=== PATIENT | male | born 2000 | race Hispanic/Latino ===

== ENCOUNTER 2020-03-18 09:00 | Emergency (ER) | payer OTHER ==
[~2020-03-18] VITALS: Ht 162.6 cm; Wt 60.0 kg
[2020-03-18] MEDS ORDERED: KETOROLAC 30 MG/ML 1ML VIAL IV ONE (09:30)
[2020-03-18] MEDS ORDERED: KETOROLAC 60MG 2ML VIAL IM ONE (09:30)
--- NOTE | 2020-03-18 10:12 | REP ---
CHEST, SINGLE VIEW: There is no evidence of acute infiltrate. No pleural effusion is seen. The heart is normal in size. The mediastinal silhouette is unremarkable. The visualized osseous structures are intact. IMPRESSION: No acute pulmonary disease. Electronically Signed by Jayant Whiting MD 03/18/2020 12:19 P
[2020-03-18] MEDS ORDERED: CYCLOBENZAPRINE 10MG TABLET PO ONE (10:30)
[2020-03-18] MEDS ORDERED: NORC1TAB7 PO (11:25)
[2020-03-18] MEDS ORDERED: KETO10TAB PO (11:25)
[2020-03-18] MEDS ORDERED: CYCL5TAB PO (11:25)
[2020-03-18] MEDS ORDERED: NORCO, ANEXSIA 5/325MG TABLET (HYDROcodone/ACETAMINOPHEN) PO ONE (11:30)
[2020-03-18 11:35] VITALS: BP 108/74
== END 2020-03-18 11:40 | disposition home or self-care (01) ==
LOC: M ED 09:00 → EDBD 09:00 → M ED 11:40
DX: M62.838 Other muscle spasm (principal)
CPT/HCPCS: 71045; 96372; 99284; J1885

== ENCOUNTER 2021-09-01 17:59 | Emergency (ER) | payer OTHER ==
[~2021-09-01] VITALS: Ht 152.4 cm; Wt 59.1 kg
[2021-09-01 17:59] VITALS: BP 118/65
[~2021-09-01 17:59] MED LIST: CYCL5TAB PO; KETO10TAB PO; NORC1TAB7 PO
--- OUTSIDE RECORDS SUMMARY | 2021-09-01 18:08 | CCD ---
Author Author [facility] Organization [facility] Address Unknown Phone Unavailable Care Team Providers Care Map Clerk Name Role Phone NO, PCP Unavailable Unavailable TURRIN, ALLAN Unavailable Unavailable TURRIN, ALLAN Unavailable Unavailable TURRIN, ALLAN Unavailable Unavailable TURRIN, ALLAN Unavailable Unavailable Re-disclosure Warning The records that you are about to access may contain information from federally-assisted alcohol or drug abuse programs. If such information is present, then the following federally mandated warning applies: This information has been disclosed to you from records protected by federal confidentiality rules (42 CFR part 2). The federal rules prohibit you from making any further disclosure of this information unless further disclosure is expressly permitted by the written consent of the person to whom it pertains or as otherwise permitted by 42 CFR part 2. A general authorization for the release of medical or other information is NOT sufficient for this purpose. The Federal rules restrict any use of the information to criminally investigate or prosecute any alcohol or drug abuse patient.The records that you are about to access may contain highly sensitive health information, the redisclosure of which is protected by Article 27-F of the [facility] Public Health law. If you continue you may have access to information: Regarding HIV / AIDS; Provided by facilities licensed or operated by the [facility] Office of Mental Health; or Provided by the [facility] Office for People With Developmental Disabilities. If such information is present, then the following [facility] mandated warning applies: This information has been disclosed to you from confidential records which are protected by state law. State law prohibits you from making any further disclosure of this information without the specific written consent of the person to whom it pertains, or as otherwise permitted by law. Any unauthorized further disclosure in violation of state law may result in a fine or mcc sentence or both. A general authorization for the release of medical or other information is NOT sufficient authorization for further disc losure. Encounters Encounter Providers Location Date Indications Data Source(s ) Emergency Attender: ALLAN Haydenant: PCP NO 08/30/2021 09:40:00 AM EST - 08/30/2021 03:00:00 PM [facility] Patient discharged. Immunizations Vaccine Date Status Description Data Source(s) COVID-19 VACCINE Moderna 03/09/2021 12:00:00 AM EDT completed [facility] Vaccine Series Complete: YESThis Data wa s Submitted to [facility] Via [employer]. COVID-19 VACCINE Moderna 02/09/2021 12:00:00 AM EDT completed [place] [place]uc[place] Vaccine Series Complete: NOThis Data was Submitted to [facility] Via [employer]. Medications No Information Insurance Providers Payer name Policy type / Coverage type Policy ID Covered alliance party ID Covered alliance party's relationship to mckeon Policy Mckeon Plan Information [facility] - O/P [id number] 18 [id number] [facility] ACTIVE DUTY [id number] SP [id number] [facility] O [id number] S [id number] Problems, Conditions, and Diagnoses No Information Surgeries/Procedures No Information Results ID Date Data Source [id number] 08/30/2021 10:11:00 PM [facility] [address] [place] [address] PHONE: [phone] FAX: [phone] Name ..............: ELLIS LOPEZ Acct Number ...........................: [id number] ROOM. ............: VT-09 Number ............................: [id number] Stay type.........: E/R Discharge Date...............:08/30/21 Admit Date .....: 08/30/21 Admit Phys .............................: LOUISA SALINAS Date of ..: 2000 Family Phys ...........................: NO PCP Phone..............: [phone] Age.................................:20 Film# ...............:[id number] Sex.................................:M Unsigned transcriptions are preliminary reports and do not represent a medical or legal document EKG [id number] COMPLETE:08/30/21 14:22 [id number] Please See Scanned Results. Name Value Range Interpretation Code Description Data Elizabeth rce(s) Supporting Document(s) ID Date Data Source [id number] 08/30/2021 01:13:00 PM EST Name Value Range Interpretation Code Description Data [facility] rce(s) Supporting Document(s) UA REFLEX TO UA CULTURE [facility] URINALYSIS SOURCE R [facility] COLOR yellow NORMAL: Yellow [facility] CLARITY clear NORMAL: Clear [facility] Specific gravity of Urine by Test strip 1.025 1.001 - 1.030 pH 6 5 - 9 [facility] Glucose [Mass/volume] in Urine by Test strip NORM NORMAL: Negat [facility] Bilirubin.total [Presence] in Urine by Test strip NEG NORMAL: Negative Ketones [Presence] in Urine by Test strip NEG NORMAL: Negative Protein [Mass/volume] in Urine by Test strip NEG NORMAL: Negat [facility] Nitrite [Presence] in Urine by Test strip NEG NORMAL: Negative BLOOD NEG NORMAL: Negative Leukocyte esterase [Presence] in Urine by Test strip NEG MATTIE L: Negative Urobilinogen [Mass/volume] in Urine by Test strip 1 less dereck n 1.0 mg/dL MICROSCOPIC Not Indicate [facility] ID Date Data Source [id number] 08/30/2021 01:36:00 PM EST Name Value Range Interpretation Code Description Data Elizabeth rce(s) Supporting Document(s) CBC W/AUTOMATED DIFF COMPLETE BLOOD COUNT Leukocytes [#/volume] in Blood by Automated count 6.4 10^3/uL 4.2 - 1 1.0 Erythrocytes [#/volume] in Blood by Automated count 4.89 10^6/uL 4. 50 - 6.30 Hemoglobin [Mass/volume] in Blood 15.2 g/dL 14.0 - 16.0 Hematocrit [Volume Fraction] of Blood by Automated count 43.6 % 4 1.0 - 51.0 Erythrocyte mean corpuscular volume [Entitic volume] by Auto mated count 89.2 fL 80.0 - 94.0 Erythrocyte mean corpuscular hemoglobin [Entitic mass] by Automated count 31.1 pg 27.0 - 34.0 Erythrocyte mean corpuscular hemoglobin concentration [Mass/volume] by Automated count 34.9 g/dL 31.0 - 36.0 Erythrocyte distribution width [Ratio] by Automated count 11.9 % 11.5 - 14.8 Platelets [#/volume] in Blood by Automated count 305 10^3/uL 150 - 45 0 Platelet mean volume [Entitic volume] in Blood by Automated count 9.2 fL 7.4 - 10.4 Neutrophils/100 leukocytes in Blood by Automated count 55.9 % 37. 0 - 80.0 Lymphocytes/100 leukocytes in Blood by Manual count 31.9 % 25.0 - 40.0 Monocytes/100 leukocytes in Blood by Automated count 6.3 % 3.0 - 8.0 Eosinophils/100 leukocytes in Blood by Automated count 4.4 % 0.0 - 7.0 Basophils/100 leukocytes in Blood by Automated count 0.9 % 0.0 - 2.0 %IG 0.6 % 0.0 - 0.0 H [facility] %NRBC 0.0 % 0.0 - 0.0 [facility] al Neutrophils [#/volume] in Blood by Automated count 3.55 10^3/uL 2.00 - 6.90 Lymphocytes [#/volume] in Blood by Automated count 2.03 10^3/uL 0.60 - 3.40 Monocytes [#/volume] in Blood by Automated count 0.40 10^3/uL 0.00 - 0.90 Eosinophils [#/volume] in Blood by Automated count 0.28 10^3/uL 0.00 - 0.70 Basophils [#/volume] in Blood by Automated count 0.06 10^3/uL 0.00 - 0.20 #IG 0.04 10^3/uL 0.00 - 0.10 [facility] #NRBC 0.00 10^3/uL 0.00 - 0.00 [facility] MANUAL DIFF SEE BELOW [facility] ital Segmented neutrophils/100 leukocytes in Blood by Manual count 56 % 37 - 80 %LYMPH 36 % 25 - 40 [facility] %MONO 6 % 3 - 8 [facility] %EOS 2 % 0 - 7 [facility] al RBC MORPH MORPH IS NORMAL ID Date Data Source [id number] 08/30/2021 01:39:00 PM EST Name Value Range Interpretation Code Description Data Elizabeth rce(s) Supporting Document(s) Thyrotropin [Units/volume] in Serum or Plasma by Detec tion limit <= 0.05 mIU/L 3.87 uIU/mL 0.47 - 5.01 ID Date Data Source [id number] 08/30/2021 01:31:00 PM EST Name Value Range Interpretation Code Description Data Elizabeth rce(s) Supporting Document(s) TROPONIN T <0.01 NG/ML 0.00 - 0.10 [facility] TROPONIN T0.1 ng/ml Recommended as the c linical threshold value Yulisaroponin T. ID Date Data Source [id number] 08/30/2021 01:31:00 PM EST Name Value Range Interpretation Code Description Data Elizabeth rce(s) Supporting Document(s) COMPREHENSIVE METABOLIC PANEL COMPREHENSIVE METABOLIC PANEL Sodium [Moles/volume] in Serum or Plasma 139 mEq/L 134 - 153 Potassium [Moles/volume] in Serum or Plasma 4.3 mEq/L 3.6 - 5.0 Chloride [Moles/volume] in Serum or Plasma 101 mEq/L 98 - 107 Carbon dioxide, total [Moles/volume] in Serum or Plasma 30 MEQ/L 22 - 30 Glucose [Mass/volume] in Serum or Plasma 91 MG/DL 70 - 99 BUN 11 MG/DL 7 - 21 [facility] Creatinine [Mass/volume] in Serum or Plasma 0.9 MG/DL 0.7 - 1.5 BUN/CREAT 12 8 - 27 [facility] al Protein [Mass/volume] in Serum or Plasma 7.3 G/DL 6.3 - 8.2 Albumin [Mass/volume] in Serum or Plasma 5.0 G/DL 3.9 - 5.0 Globulin [Mass/volume] in Serum by calculation 2.3 GM/DL 2.4 - 3.2 L A/G RATIO 2.2 0.8 - 2.0 [facility] Calcium [Mass/volume] in Serum or Plasma 9.8 MG/DL 8.4 - 10.2 Bilirubin.total [Mass/volume] in Serum or Plasma <0.7 MG/DL 0.2 - 1.3 Alkaline phosphatase [Enzymatic activity/volume] in Serum or Plasma 85 U/L 38 - 126 Aspartate aminotransferase [Enzymatic activity/volume] in Serum or Plasma 14 U/L 5 - 40 Alanine aminotransferase [Enzymatic activity/volume] in Seru m or Plasma 11 U/L 7 - 56 Anion gap 3 in Serum or Plasma 8.0 mmol/L 8.0 - 16.0 AGE 20 yrs [facility] NON-AA GFR >60 mL/min [facility] AFR AMER GFR >60 mL/min [facility] Male GFR In terprentation 20-49 yrs >60 mL/min Normal 50-59 yrs >56 mL/min Normal 60-69 yrs >49 mL/min Normal 70-79yrs >42 mL/min Normal 80 and above >35 mL/min Normal Female GFR Interpretation 20-39 yrs >60 mL/min Normal 40-49 yrs >58 mL/min Normal 50-59 yrs >51 mL/min Normal 60-69 yrs >45 mL/min Normal 70-79 yrs >39 mL/min Normal 80 and above >32 mL/min Normal ID Date Data Source [id number] 08/30/2021 01:29:00 PM [facility] Name Value Range Interpretation Code Description Data Elizabeth rce(s) Supporting Document(s) Lipase [Enzymatic activity/volume] in Serum or Plasma 39 U/L 13 - 60 ID Date Data Source [id number] 08/30/2021 01:21:00 PM [facility] Name Value Range Interpretation Code Description Data Elizabeth rce(s) Supporting Document(s) Fibrin D-dimer FEU [Mass/volume] in Platelet poor plasma 0.32 ug /mL 0.27 - 0.50 ID Date Data Source [id number] 08/30/2021 01:20:00 PM [facility] Name Value Range Interpretation Code Description Data Elizabeth rce(s) Supporting Document(s) Prothrombin time (PT) 13.3 SECONDS 11.0 - 15.5 [facility] INR in Platelet poor plasma by Coagulation assay 1.00 0.93 - 1. 23 aPTT in Blood by Coagulation assay 30.4 SECONDS 24.8 - 36.7 \BLDo\INR INTERPRETATION\BLDx\ Therapeutic range for Coumadin and related oral anticoagulants. - International Normalized Ratio (INR): 2.0 - 3.0 for Venous Thrombosis, Pulmonary Embolus, Tissue heart valves, Acute [place] Atrial Fibrillation, Valvular heart disease and recurrent Systemic Embolism. - International Normalized Ratio (INR): 2.5 - 3.5 for Mechanical Prosthetic valve. ID Date Data Source [id number] 08/26/2021 11:47:00 AM EDT [facility] Name Value Range Interpretation Code Description Data Elizabeth rce(s) Supporting Document(s) SARS coronavirus 2 RNA Not Detected [facility] This lab was ordered by [facility] and reported by [facility]. ID Date Data Source [id number] 08/24/2021 12:00:00 AM EDT [facility] Name Value Range Interpretation Code Description Data Elizabeth rce(s) Supporting Document(s) SARS-COV-2 Negative [facility] This lab was ordered by [employer] and re ported by [facility]. Procedure Social History No Information
--- OUTSIDE RECORDS SUMMARY | 2021-09-01 22:20 | CCD ---
Author Author [facility] Organization [facility] Address Unknown Phone Unavailable Care Team Providers Care Technical Support Specialist Name Role Phone NO, PCP Unavailable Unavailable [...] is protected by Article 27-F of the [facility] Public Health law. If you continue you may have access to information: Regarding HIV / AIDS; Provided by facilities licensed or operated by the [facility] Office of Mental Health; or Provided by the [facility] Office for People With Developmental Disabilities. If such information is present, then the following [facility] mandated warning applies: This information has been [...] law may result in a fine or residential sentence or both. A general authorization for the release of medical or other information is NOT sufficient authorization for further disc losure. Encounters Encounter Providers Location Date Indications Data Source(s ) Emergency Attender: ALLAN Haydenant: PCP NO 08/30/2021 09:40:00 AM EST - 08/30/2021 03:00:00 PM [facility] Patient discharged. Immunizations Vaccine Date Status Description Data Source(s) COVID-19 VACCINE Moderna 03/09/2021 12:00:00 AM EDT completed [facility] Vaccine Series Complete: YESThis Data wa s Submitted to [facility] [employer]. COVID-19 VACCINE Moderna 02/09/2021 12:00:00 AM EDT completed [employer] Vaccine Series Complete: NOThis Data was Submitted to [facility] [employer]. Medications No Information Insurance Providers Payer name Policy type / Coverage type Policy ID Covered green party ID Covered green party's relationship to mckeon Policy [employer] Plan Information [employer] - O/P [id number] 18 [id number] [facility] ACTIVE DUTY [id number] SP [id number] [facility] O [id number] S [id number] Problems, Conditions, and Diagnoses No Information Surgeries/Procedures No Information Results ID Date Data Source [id number] 08/30/2021 10:11:00 PM [facility] [address] [place] [address] PHONE: [phone] FAX: [phone] Name ..............: ELLIS LOPEZ Acct Number ...........................: [id number] ROOM. ............: VT-09 Number ............................: [id number] Stay type.........: E/R Discharge Date...............:08/30/21 Admit Date .....: 08/30/21 Admit Phys .............................: LOUISA SALINAS Date of ..: 2000 Family Phys ...........................: NO PCP Phone..............: [phone] Age.................................:20 Film# ...............:[id number] Sex.................................:M Unsigned transcriptions are preliminary reports and do not represent a medical or legal document EKG [id number] COMPLETE:08/30/21 14:22 11568 Please See Scanned Results. Name Value Range Interpretation Code Description Data Elizabeth rce(s) Supporting Document(s) ID Date Data Source [id number] 08/30/2021 01:13:00 PM EST [facility] Name Value Range Interpretation Code Description Data [facility] rce(s) Supporting Document(s) UA REFLEX TO UA CULTURE [facility] URINALYSIS SOURCE R [facility] COLOR yellow NORMAL: Yellow [facility] CLARITY clear NORMAL: Clear [facility] Specific gravity of Urine by Test strip 1.025 1.001 - 1.030 [facility] 6 5 - [facility] Glucose [Mass/volume] in Urine by Test strip NORM NORMAL: Negat [facility] Bilirubin.total [Presence] in Urine by Test strip NEG NORMAL: Negative [facility] Ketones [Presence] in Urine by Test strip NEG NORMAL: Negative [facility] Protein [Mass/volume] in Urine by Test strip NEG NORMAL: Negat [facility] Nitrite [Presence] in Urine by Test strip NEG NORMAL: Negative [facility] BLOOD NEG NORMAL: Negative [facility] Leukocyte esterase [Presence] in Urine by Test strip NEG MATTIE L: Negative [facility] Urobilinogen [Mass/volume] in Urine by Test strip 1 less dereck n 1.0 mg/dL [facility] MICROSCOPIC Not Indicate [facility] ID Date Data Source [id number] 08/30/2021 01:36:00 PM EST [facility] Name Value Range Interpretation Code Description Data Elizabeth rce(s) Supporting Document(s) CBC W/AUTOMATED DIFF [facility] COMPLETE BLOOD COUNT Leukocytes [#/volume] in Blood by Automated count 6.4 10^3/uL 4.2 - 1 1.0 [facility] Erythrocytes [#/volume] in Blood by Automated count 4.89 10^6/uL 4. 50 - 6.30 [facility] Hemoglobin [Mass/volume] in Blood 15.2 g/dL 14.0 - 16.0 [facility] Hematocrit [Volume Fraction] of Blood by Automated count 43.6 % 4 1.0 - 51.0 [facility] Erythrocyte mean corpuscular volume [Entitic volume] by Auto mated count 89.2 fL 80.0 - 94.0 [facility] Erythrocyte mean corpuscular hemoglobin [Entitic mass] by Automated count 31.1 pg 27.0 - 34.0 [facility] Erythrocyte mean corpuscular hemoglobin concentration [Mass/volume] by Automated count 34.9 g/dL 31.0 - 36.0 [facility] Erythrocyte distribution width [Ratio] by Automated count 11.9 % 11.5 - 14.8 [facility] Platelets [#/volume] in Blood by Automated count 305 10^3/uL 150 - 45 0 [facility] Platelet mean volume [Entitic volume] in Blood by Automated count 9.2 fL 7.4 - 10.4 [facility] Neutrophils/100 leukocytes in Blood by Automated count 55.9 % 37. 0 - 80.0 [facility] Lymphocytes/100 leukocytes in Blood by Manual count 31.9 % 25.0 - 40.0 [facility] Monocytes/100 leukocytes in Blood by Automated count 6.3 % 3.0 - 8.0 [facility] Eosinophils/100 leukocytes in Blood by Automated count 4.4 % 0.0 - 7.0 [facility] Basophils/100 leukocytes in Blood by Automated count 0.9 % 0.0 - 2.0 [facility] %IG 0.6 % 0.0 - 0.0 H [facility] %NRBC 0.0 % 0.0 - 0.0 [facility] Neutrophils [#/volume] in Blood by Automated count 3.55 10^3/uL 2.00 - 6.90 [facility] Lymphocytes [#/volume] in Blood by Automated count 2.03 10^3/uL 0.60 - 3.40 [facility] Monocytes [#/volume] in Blood by Automated count 0.40 10^3/uL 0.00 - 0.90 [facility] Eosinophils [#/volume] in Blood by Automated count 0.28 10^3/uL 0.00 - 0.70 [facility] Basophils [#/volume] in Blood by Automated count 0.06 10^3/uL 0.00 - 0.20 [facility] #IG 0.04 10^3/uL 0.00 - 0.10 [facility] #NRBC 0.00 10^3/uL 0.00 - 0.00 [facility] MANUAL DIFF SEE BELOW [facility] Segmented neutrophils/100 leukocytes in Blood by Manual count 56 % 37 - 80 [facility] %LYMPH 36 % 25 - 40 [facility] %MONO 6 % 3 - 8 [facility] %EOS 2 % 0 - 7 [facility] RBC MORPH MORPH IS NORMAL [facility] ID Date Data Source [id number] 08/30/2021 01:39:00 PM EST [facility] Name Value Range Interpretation Code Description Data Elizabeth rce(s) Supporting Document(s) Thyrotropin [Units/volume] in Serum or Plasma by Detec tion limit <= 0.05 mIU/L 3.87 uIU/mL 0.47 - 5.01 [facility] ID Date Data Source [id number] 08/30/2021 01:31:00 PM EST [facility] Name Value Range Interpretation Code Description Data Elizabeth rce(s) Supporting Document(s) TROPONIN T <0.01 NG/ML 0.00 - 0.10 [facility] ospital TROPONIN T0.1 ng/ml Recommended as the c linical threshold value Yulisaroponin T. ID Date Data Source [id number] 08/30/2021 01:31:00 PM EST [facility] Name Value Range Interpretation Code Description Data Elizabeth rce(s) Supporting Document(s) COMPREHENSIVE METABOLIC PANEL [facility] COMPREHENSIVE METABOLIC PANEL Sodium [Moles/volume] in Serum or Plasma 139 mEq/L 134 - 153 [facility] Potassium [Moles/volume] in Serum or Plasma 4.3 mEq/L 3.6 - 5.0 [facility] Chloride [Moles/volume] in Serum or Plasma 101 mEq/L 98 - 107 [facility] Carbon dioxide, total [Moles/volume] in Serum or Plasma 30 MEQ/L 22 - 30 [facility] Glucose [Mass/volume] in Serum or Plasma 91 MG/DL 70 - 99 [facility] BUN 11 MG/DL 7 - 21 [facility] Creatinine [Mass/volume] in Serum or Plasma 0.9 MG/DL 0.7 - 1.5 [facility] BUN/CREAT 12 8 - 27 [facility] Protein [Mass/volume] in Serum or Plasma 7.3 G/DL 6.3 - 8.2 [facility] Albumin [Mass/volume] in Serum or Plasma 5.0 G/DL 3.9 - 5.0 [facility] Globulin [Mass/volume] in Serum by calculation 2.3 GM/DL 2.4 - 3.2 L [facility] A/G RATIO 2.2 0.8 - 2.0 [facility] Calcium [Mass/volume] in Serum or Plasma 9.8 MG/DL 8.4 - 10.2 [facility] Bilirubin.total [Mass/volume] in Serum or Plasma <0.7 MG/DL 0.2 - 1.3 [facility] Alkaline phosphatase [Enzymatic activity/volume] in Serum or Plasma 85 U/L 38 - 126 [facility] Aspartate aminotransferase [Enzymatic activity/volume] in Serum or Plasma 14 U/L 5 - 40 [facility] Alanine aminotransferase [Enzymatic activity/volume] in Seru m or Plasma 11 U/L 7 - 56 [facility] Anion gap 3 in Serum or Plasma 8.0 mmol/L 8.0 - 16.0 [facility] AGE 20 yrs [facility] NON-AA GFR >60 mL/min [facility] ital AFR AMER GFR >60 mL/min [facility] Male GFR In terprentation 20-49 [...] >32 mL/min Normal ID Date Data Source [id number] 08/30/2021 01:29:00 PM [facility] Name Value Range Interpretation Code Description Data Elizabeth rce(s) Supporting Document(s) Lipase [Enzymatic activity/volume] in Serum or Plasma 39 U/L 13 - 60 [facility] ID Date Data Source [id number] 08/30/2021 01:21:00 PM [facility] Name Value Range Interpretation Code Description Data Elizabeth rce(s) Supporting Document(s) Fibrin D-dimer FEU [Mass/volume] in Platelet poor plasma 0.32 ug /mL 0.27 - 0.50 [facility] ID Date Data Source [id number] 08/30/2021 01:20:00 PM [facility] Name Value Range Interpretation Code Description Data Elizabeth rce(s) Supporting Document(s) Prothrombin time (PT) 13.3 SECONDS 11.0 - 15.5 Health system INR in Platelet poor plasma by Coagulation assay 1.00 0.93 - 1. 23 [facility] aPTT in Blood by Coagulation assay 30.4 SECONDS 24.8 - 36.7 [facility] \BLDo\INR INTERPRETATION\BLDx\ Therapeutic range for Coumadin and related oral anticoagulants. - International Normalized Ratio (INR): 2.0 - 3.0 for Venous Thrombosis, Pulmonary Embolus, Tissue heart valves, Acute [place] Atrial Fibrillation, Valvular heart disease and recurrent Systemic Embolism. - International Normalized Ratio (INR): 2.5 - 3.5 for Mechanical Prosthetic valve. ID Date Data Source [id number] 08/26/2021 11:47:00 AM EDT [facility] Name Value Range Interpretation Code Description Data Elizabeth rce(s) Supporting Document(s) SARS coronavirus 2 RNA Not Detected [facility] This lab was ordered by [facility] and reported by [facility]. ID Date Data Source [id number] 08/24/2021 12:00:00 AM EDT [facility] Name Value Range Interpretation Code Description Data Elizabeth rce(s) Supporting Document(s) SARS-COV-2 Negative [facility] This lab was ordered by [facility] and re ported by [facility]. Procedure Social History No Information
== END 2021-09-01 22:13 | disposition left against medical advice (07) ==
LOC: M ED 17:59
DX: Z53.29 Procedure and treatment not carried out because of patient's decision for other reasons (principal)

== ENCOUNTER 2021-09-15 10:59 | Emergency (ER) | payer OTHER ==
[~2021-09-15] VITALS: Ht 162.6 cm; Wt 59.8 kg
--- OUTSIDE RECORDS SUMMARY | 2021-09-15 11:04 | CCD ---
Author Author [facility] Address Unknown Phone Unavailable Care Team Providers Care Tractor Distributor Name Role Phone NO, PCP Unavailable Unavailable [...] is protected by Article 27-F of the [facility] Public Health law. If you continue you may have access to information: Regarding HIV / AIDS; Provided by facilities licensed or operated by the [facility] Office of Mental Health; or Provided by the [facility] Office for People With Developmental Disabilities. If such information is present, then the following [facility] mandated warning applies: This information has [...] law may result in a fine or assisted sentence or both. A general authorization for the release of medical or other information is NOT sufficient authorization for further disc losure. Encounters Encounter Providers Location Date Indications Data Source(s ) Emergency Attender: ALLAN Liraltant: PCP NO 08/30/2021 09:40:00 AM EST - 08/30/2021 03:00:00 PM [facility] Patient discharged. Immunizations Vaccine Date Status Description Data Source(s) COVID-19 VACCINE Moderna 03/09/2021 12:00:00 AM EDT completed [facility] Vaccine Series Complete: YESThis Data wa s Submitted to [facility] Via [employer]. COVID-19 VACCINE Moderna 02/09/2021 12:00:00 AM EDT completed [facility] Vaccine Series Complete: NOThis Data was Submitted to [facility] Via [employer]. Medications No Information Insurance Providers Payer name Policy type / Coverage type Policy ID Covered democrat ID Covered democrat's relationship to mckeon Policy Mckeon Plan Information [facility] [id number] SP [id number] [facility] - O/P [id number] 18 [id number] [facility] O [id number] S [id number] Problems, Conditions, and Diagnoses Code Display Name Description Problem Type Effective Dates Data Source(s) Z5320 Procedure and treatment not carried out because of patient's decision for unspecified reasons Procedure and treatment not carried out because of patient's decision for unspecified reasons Diagnosis 08/30/2021 09:40:00 AM [facility] R001 Bradycardia, unspecified Bradycardia, unspecified Diag nosis 08/30/2021 09:40:00 AM [facility] R42 Dizziness and giddiness Dizziness and giddiness Diagno sis 08/30/2021 09:40:00 AM [facility] Surgeries/Procedures No Information Results ID Date Data Source [id number] 08/30/2021 09:40:00 AM [facility] 1 OrderSheet [facility] Emergency Department [address] [place] [address] Phone #: ext- [phone] 08/30/2021 09:33 Patient: JOHN CORRAL Sex: M : 2000 Age: 20yWEIGHT:58.9 kg (S) HEIGHT:64 inches (S) BMI:22.3ALLERGIES: No Known Drug AllergyCHIEF COMPLAINT: dizzinessDIAGNOSIS: DizzinessLAB ORDERSOrder Description Priority Entered Acknowledged InitialedCBC w Diff STAT 12:49 08/30/2021 13:06 Mik Lipscomb RN P.A.-C;CMP STAT 12:49 08/30/2021 13:06 Mik Lipscomb RN P.A.-C;Lipase STAT 12:49 08/30/2021 13:06 Mik Lipscomb RN P.A.-C;PT/PTT STAT 12:49 08/30/2021 13:06 Mik Lipscomb RN P.A.-C;Troponin-T STAT 12:49 08/30/2021 13:06 Mik Lipscomb RN P.A.-C;TSH STAT 12:49 08/30/2021 13:06 Mik Lipscomb RN P.A.-C;D-Dimer STAT 12:49 08/30/2021 13:06 Mik Lipscomb RN P.A.-C;UA Reflex to UA STAT 12:49 08/30/2021 13:36 Ruel,Culture Mik Lin RN P.A.- C;DIAGNOSTIC STUDY ORDERSOrder Description Priority Entered Acknowledged InitialedCT Head W/O Cont STAT 13:56 08/30/2021 Cancelled: Patient Left 15:10 Alfred,(Oxygen?(No)) Mik Nair R.N. P.A.-C; Reason for Study: dizziness 2 OrderSheet [facility] Emergency Department [address] [place] [address] Phone #: ext- [phone] 08/30/2021 09:33 Patient: JOHN CORRAL Sex: M : 2000 Age: 20yChest 2 View STAT 13:56 08/30/2021 14:29 Ruel,(Oxygen?(No)) Mik Lin RN P.A.-C; Reason for Study: dizziness; neg d- dimerMEDICATION/IV/DRIP/FLUID ORDERSOrder Description Priority Entered Acknowledged InitialedIV NS : Bolus 500 12:49 08/30/2021 13:46 Ruel,mL, then 100 mL/hr Mik Lin RN P.A.-C;Tylenol 1 g PO X1 13:56 08/30/2021 Cancelled: Patient Left 15:10 Simon,dose: 1000 mg Mik Nair R.N.(NOW x1) P.A.- C;Zofran IVP 4 mg 13:56 08/30/2021 Cancelled: Patient Left 15:10 Alfred, Mik Nair R.N. P.A.-C;GENERAL ORDERSOrder Description Priority Entered Acknowledged InitialedEKG 12:26 08/30/2021 12:26 L Reul Keating Lisa RN; Delia MERCADO Per protocol; Mik Grafood Pressure 12:49 08/30/2021 13:05 Ruel,Monitor Mik Lin RN P.A.-C;Political Geographer 12:49 08/30/2021 13:05 Ruel,(continuous) Mik Lin RN P.A.-C;NPO 12:49 08/30/2021 13:05 Mik Lipscomb RN P.A.-C;Obtain Old EKG 12:49 08/30/2021 13:05 Mik Lipscomb RN P.A.-C;Obtain Old Records 12:49 08/30/2021 13:06 Mik Lipscomb RN P.A.-C;Saline Lock 12:49 08/30/2021 13:46 Mik Lipscomb RN;Vitals 12:49 08/30/2021 13:00 Ruel, 3 OrderSheet [facility] Emergency Department [address] [place] [address] Phone #: [phone]- [phone] 08/30/2021 09:33 Patient: JOHN CORRAL Sex: M : 2000 Age: 20y Mik Lin RN, P.A.-C;[Electronically signed by Joanie Simon R.N. (15:13 08/30/2021)][Electronically signed by Mik Hanks P.A.-C (10:58 08/31/2021)][Electronically locked by Joanie Simon R.N. (15:13 08/30/2021)] Name Value Range Interpretation Code Description Data Elizabeth rce(s) Supporting Document(s) ID Date Data Source [id number] 08/30/2021 09:40:00 AM EST [facility] 1 Medication Reconciliation Report [facility] Emergency Department [address] [place] [address] Phone #: ext- [phone] 08/30/2021 09:33 Patient: JOHN CORRAL Sex: M : 2000 Age: 20yWeight: 58.9 kgHeight/Length: 64 in.BMI: 22.3ALLERGIES: No Known Drug AllergyThe patient's Home Medications are listed below:NONE.The source(s) of the original Home Medication information:Not obtained.The following Medications were given to the patient in the Emergency Department:IV NS IV Fluids bolus 500 mL over 30 minute(s), then 100 mL/hr, administered: 13:46 08/30/2021The following Medications were prescribed to the patient:None. Name Value Range Interpretation Code Description Data Elizabeth rce(s) Supporting Document(s) ID Date Data Source [id number] 08/30/2021 09:40:00 AM [place] [address] Medication Administration Record [facility] Emergency Department [address] [place] [address] Phone #: her- [phone] 08/30/2021 09:33 Patient: JOHN CORRAL Sex: M : 2000 Age: 20yWeight: 58.9 kgHeight/Length: 64 inBMI: 22.3ALLERGIES: No Known Drug Allergy Date/Time Medication Administered Medication OrderedStart IV NS IV NS : Bolus 500 mL, then [address]:[id number] 08/30/2021 Dose: IV Fluids mL/hrDelia Lipscomb RN Rate: 100 mL/hr over 5 hour(s)---- Bolus: 500 mL over 30 minute(s)Stop Dispensed: 1000 mL bag15:13 08/30/2021 Site: #1 left Joanie Prieto R.N. Name Value Range Interpretation Code Description Data Elizabeth rce(s) Supporting Document(s) ID Date Data Source [id number] 08/30/2021 09:40:00 AM [place] [address] General Instructions [facility] Emergency Department [address] [place] [address] Phone #: ext- [phone] 08/30/2021 09:33 Patient: JOHN CORRAL Sex: M : 2000 Age: 20yDizzinessINSTRUCTIONSDrink plenty of fluids.(Recommend to utilize OTC Motrin and Tylenol to control inflammation and pain management.Recommend to follow the instructions on the bottle and not to exceed.).Warnings: Further evaluation is necessary.GENERAL WARNINGS: Return or contact your physician immediately if your condition worsens orchanges unexpectedly, if not improving as expected, or if other problems arise.Follow-up:Return to the emergency department as needed. Follow up with your healthcare provider in about twodays if not better. Call for an appointment.Understanding of the discharge instructions verbalized by patient.AMA warnings: Oriented to person, place, and time. Gives appropriate answers and rational explanationof refusal of care. Speaks coherently. No signs of psychosis, auditory hallucinations, delusional thinking,suicidal ideations or slurred speech. No tangential thinking, visual hallucinations or homicidal ideations.Abstract thinking intact.Clinical Impression: the patient has the capacity to make decisions regarding the medical care offered.Relevant issues reviewed and discussed with the patient. The suspected diagnosis, based upon theinitiated medical screening exam, is Dizziness and has been discussed with the patient. Acknowledgesunderstanding of the reasons for recommendations regarding medical treatment and further observation.The recommended medical care being refused is Wait for results and imaging and has been discussedwith the patient. The risks of refusing recommended care that were disclosed are . Risks ofrefusing recommended care- Significnat negative outcome. Discharge instructions were provided to thepatient.REFUSAL OF CARE STATEMENT (patient to review and sign in discharge instructions):I have read this paragraph. I understand that a doctor at this hospital wants to give me certain medicalcare. The doctor explained that care to me, and I understand what that care is. The doctor also explainedto me what could happen to me if I leave here without having that care, and I understand what he said. Iknow that I am welcome to return to this hospital at any time to receive the recommended care or any othercare that I may need at any time, regardless of my ability to pay for such care. 2 General Instructions [facility] Emergency Department [address] [place] [address] Phone #: ext- [phone] 08/30/2021 09:33 Patient: JOHN CORRAL Sex: M : 2000 Age: 20y ADDITIONAL INFORMATIONDizziness (Uncertain Cause)Dizziness is a common symptom. It may be described as lightheadedness, spinning, or feeling likeyou are going to faint. Dizziness can have many causes.Tell the healthcare provider about: All medicines you take, including prescription, [id number], herbs, and supplements Any other symptoms you have Any health problems you are being treated for Any past major health problems you've had, such as a heart attack, balance issues, hearing problems, or blood pressure problems Anything that causes the dizziness to get worse or betterToday's exam did not show an exact cause for your dizziness . Other tests may be needed. Follow upwith your healthcare provider.Home care Dizziness that occurs with sudden standing may be a sign of mild dehydration. Drink extra fluids for the next few days. If you recently started a new medicine, stopped a medicine, or had the dose of a current medicine changed, talk with the prescribing healthcare provider. Your medicine plan may need adjustment. If dizziness lasts more than a few seconds, sit or lie down until it passes. This may help prevent injury in case you pass out. Get up slowly when you feel better. Don't drive or use power tools or dangerous equipment until you have had no dizziness for at least 48 hours.Follow-up careFollow up with your healthcare provider for further evaluation in the next 7 days, or as advised.When to get medical adviceCall your healthcare provider for any of the following: Worsening of symptoms or new symptoms 3 General Instructions [facility] Emergency Department [address] [place] [address] Phone #: ext- [phone] 08/30/2021 09:33 Patient: JOHN CORRAL Sex: M : 2000 Age: 20y Repeated vomiting Headache Vision or hearing changesCall 911Call 911, or get medical care right away if any of these occur: Chest, arm, neck, back, or jaw pain Weakness of an arm or leg or one side of the face Blood in vomit or stool (black or red color) Shortness of breath Feeling that your heart is fluttering or beating fast or hard (palpitations) Passing out or seizure Trouble walking or speaking [employer]. [address] [place] [address]. All rights reserved. This information is not intended as asubstitute for professional medical care. Always follow your healthcare professional's instructions. You have been given the following additional information: Dizziness, Uncertain Cause(Electronically signed by Mik Hanks P.A.-C 08/31/2021 10:58) Name Value Range Interpretation Code Description Data Elizabeth rce(s) Supporting Document(s) ID Date Data Source [id number] 08/30/2021 09:40:00 AM EST [facility] 1 Clinical Report - Nurses [facility] Emergency Department [address] [place] [address] Phone #: mdn- [phone] 08/30/2021 09:33 Patient: JOHN CORRAL Sex: M : 2000 Age: 20yTRIAGEArrived by private vehicle. Historian: patient.Acuity: LEVEL 3.Chief Complaint: HEADACHE, DIZZINESS, SORE THROAT, CHEST PAIN, COUGH and DIARRHEA.Alert. No acute distress.Onset. (2 weeks ago). ( Pt reports having a CABALLERO, sore throat, diarrhea, and cough x 2 weeks. [facility] a covid test done which came back negative. [facility] which was also negative. This morning while running he began havingchest pain and dizziness (chest pain not present now but still feels dizzy).). 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 Seen within the last 30 days at another facility in the ED and a clinic; seen for similarsymptoms; labs done.SEPSIS SCREEN: SIRS SCREEN NEGATIVE. SEPSIS SCREEN NEGATIVE. No suspected or confirmedsigns of infection present.DANIELLE COMA SCORE: 15- eyes open- spontaneous (4); best verbal response- oriented (5); bestmotor response- obeys commands (6). --11:04 08/30/21 Joanie Simon R.N.10:56 08/30/21. BP: 103/54. HR: 64. RR: 20. O2 saturation: 98%. Temp: 97.7 F. Pain level now 05/01.--11:04 08/30/21 Joanie Simon R.N.Weight: 58.9 kg stated. Height/Length: 64 inches Per Patient. BMI: 22.3. --10:59 08/30/21 Joanie Simon R.N.MedicationsNone. --11:02 08/30/21 Joanie Simon R.N.AllergiesNo Known Drug Allergy. --11:02 08/30/21 Joanie Simon R.N.PROBLEMS:no known problems.ADDITIONAL SURGERIES:no known surgeries. 2 Clinical Report - Nurses [facility] E mergency Department [address] [place] [address] Phone #: ext- [phone] 08/30/2021 09:33 Patient: JOHN CORRAL Sex: M : 2000 Age: 20y History PAST MEDICAL HX: Immunizations: up-to-date. SOCIAL HX: Never smoker. No alcohol use or drug use. He was offered HIV testing but declined and hepatitis C testing but declined. He has not traveled outside the [place] Infectious disease exposure: The patient was not exposed to C-diff, MRSA, VRE, CRE or Coronavirus. SELF HARM ASSESSMENT: Self harm assessment was performed. The patient answered "no" to the question(s) "Have you recently felt down, depressed, or hopeless?", "Do you have thoughts of harming or killing yourself?", "Do you have a plan for harming or killing yourself?", "Have you recently had thoughts about harming or killing others?", "Do you have any dangerous items in your possession?", "Have you noticed less interest or pleasure in doing things?", "Are you here because you tried to hurt yourself?" and "Have you ever tried to hurt yourself before today?". ABUSE ASSESSMENT: No report of abuse. NUTRITIONAL RISK ASSESSMENT: The nutritional risk assessment revealed no deficiencies. FUNCTIONAL ASSESSMENT: Functional assessment: no impairments noted. LEARNING NEEDS ASSESSMENT: The learning needs assessment revealed no barriers. FALL RISK ASSESSMENT: Fall risk assessment completed. No risk factors identified. --11:08/30/21 Joanie Simon R.N. Interventions Identification band on patient. To waiting room. No allergy band on patient. --11:08/30/21 Joanie Simon R.N.PHYSICAL ASSESSMENTAmbulatory to room.GENERAL / NEURO / PSYCH: Alert. Oriented X 4. Appears in no acute distress.HEENT: No facial asymmetry noted. Mucous membranes are pink.RESPIRATORY: Respirations not labored. Chest nontender. Breath sounds within normal limits.CVS: Capillary refill less than 2 seconds. Pulses within normal limits.GI / : Abdomen soft and nontender and normal bowel sounds.SKIN: Skin intact. Skin is warm and dry. Normal skin turgor. --12:25 08/30/21 Delia Lipscomb RN.NURSING PROGRESS NOTES12:08/30/21. BP: 106/51. HR: 63. RR: 16. O2 saturation: 100%. --12:08/30/21 [facility] ED Patient gowned. Reassurance given. Two patient identifiers checked. Bed placed in lowest position. Brakes of bed on. Patient ready for evaluation. --12:26 08/30/21 Delia Lipscomb RN 3 Clinical Report - Nurses [facility] Emergency Department [address] [place] [address] Phone #: ext- [phone] 08/30/2021 09:33 Patient: JOHN CORRAL Sex: M : 2000 Age: 20y 13:07 08/30/21. BP: 102/65. HR: 53. RR: 16. O2 saturation: 100%. --13:07 08/30/21 [facility] ED 13:35 08/30/2021 Site #1 started via IV in the left antecubital space with an 20g angiocath; one attempt. Saline lock flushed with 5 mL saline. --13:45 08/30/21 Delia Lipscomb RN 13:46 08/30/2021 Started bag #1 1000 mL IV Fluids IV NS; bolus of 500 mL over 30 minute(s) then at 100 mL/hr over 5 hour(s) via site #1 via IV pump. Allergies verified and confirmed 5 rights. IV patency established. IV site checked: no pain, redness, or swelling. IV flushed thoroughly pre- and post-medication administration. Information reviewed with patient including reason for taking this medication. Verbalizes understanding. --13:46 08/30/21 Delia Lipscomb RN 14:04 08/30/21. BP: 107/63. HR: 61. RR: 16. O2 saturation: 100%. --14:05 08/30/21 [facility] ED.DISPOSITION / DISCHARGE 15:00 08/30/21. The patient left the Emergency Department without completion of treatment. The patient appears to be alert, oriented x4, coherent and in no acute distress. He stated is leaving ( obligation). Notified the ED physician and charge nurse of patient departure. Prior to leaving, he was advised to stay for completion of treatment and return if needed. He was informed of the risks of leaving and verbalized understanding of these risks. Patient signed form prior to leaving. He left the Emergency Department ambulatory and via private vehicle. --15:13 08/30/21 Joanie Simon R.N. 15:13 08/30/2021 Site #1 removed upon discharge. Catheter intact. Manual pressure and bandage applied. --15:13 08/30/21 Joanie Simon R.N. 15:13 08/30/2021 IV Fluids IV NS via IV site #1 Discontinued: bag #1 completed upon discharge. Total amount infused: 1000 mL. IV patency established. IV site checked: no pain, redness, or swelling. IV flushed thoroughly. --15:13 08/30/21 Joanie Simon R.N. 15:00 08/30/21. BP: 100/69. MAP: 79. HR: 84. RR: 18. O2 saturation: 100%. Temp: 97.9 F. Pain level now: 0/10. --15:13 08/30/21 Joanie Simon R.N.Locked/Released at 08/30/2021 15:13 by Joanie Simon R.N. Name Value Range Interpretation Code Description Data Elizabeth rce(s) Supporting Document(s) ID Date Data Source [id number] 08/30/2021 09:40:00 AM [facility] 1 Clinical Report - Physicians/Mid Levels [facility] Emergency Department [address] [place] [address] Phone #: ext- [phone] 08/30/2021 09:33 Patient: JOHN CORRAL Sex: M : 2000 Age: 20y Time Seen: 12:14 08/30/2021; initial patient contact, initial documentation. Arrived- By private vehicle. Historian- patient. Disposition decision: 14:47 08/30/2021.HISTORY OF PRESENT ILLNESS Chief Complaint: DIZZINESS. This started 2 weeks ago and is now gone. Severity described as mild at its maximum. When seen in the E.D., it was almost gone. The patient has had nausea. No vomiting, hearing loss or tinnitus. (Pt reports having a CABALLERO, sore throat, diarrhea, and cough x 2 weeks. He was seen at [facility] last week and had a covid test done which came back negative. HE had another covid test done at the [facility] on which was also negative. This morning while running he began having chest pain and dizziness (chest pain not present now but still feels dizzy)). Similar symptoms previously. Recent medical care: The patient was seen recently at another facility in the emergency department.REVIEW OF SYSTEMSNo headache, double vision, weakness, fainting episodes or head injury. No palpitations, black stools,numbness, fever or sore throat. No cough, difficulty breathing, abdominal pain, diarrhea or skin rash. Noenlarged lymph nodes, chills or joint pain. No difficulty walking. All other systems reviewed and arenegative.PAST HISTORYSee nurses notes. Problems: no known problems. Additional Surgeries: no known surgeries. Medications: None. Allergies: No Known Drug Allergy.SOCIAL HISTORYNever smoker. No alcohol use or drug use.ADDITIONAL NOTES 2 Clinical Report - Physicians/Mid Levels [facility] Emergency Department [address] [place] [address] Phone #: ion- [phone] 08/30/2021 09:33 Patient: JOHN CORRAL Sex: M : 2000 Age: 20y The nursing notes have been reviewed.PHYSICAL EXAMVital Signs: 08/30/2021 10:56 BP: 103/54. MAP: 70. HR: 64. RR: 20. O2 saturation: 98%. Temp: 97.7 F.Have been reviewed. Oxygen saturation normal.Appearance: Alert. No acute distress.Eyes: Eyelids appear normal to inspection. Conjunctivae and sclerae appear normal to inspection.Corneas appear normal to inspection. Pupils equal, round and reactive to light and light.Accommodation normal. EOMs intact. Periorbital areas appear normal to inspection. Anteriorchambers clear.ENT: Normal ENT inspection. Airway intact. TM's normal. Ears normal. Nose normal. Nares normal.Pharynx normal. Moist mucous membranes. Uvula midline. Voice normal.Neck: Normal inspection. Neck supple.CVS: Normal heart rate and rhythm. No JVD present. Pulses normal. Capillary refill normal. Strongperipheral pulses. Heart sounds normal. Pulses: right radial 2+; left radial 2+; right dorsalis pedis 2+; leftdorsalis pedis 2+; right posterior tibial 2+; left posterior tibial 2+.Respiratory: Chest normal on inspection. No respiratory distress. Unlabored respirations. Lungs clear.Good chest movement. Breath sounds normal. Chest nontender.Abdomen: Normal inspection. Soft and nontender. Bowel sounds normal. No distention.Skin: Skin warm and dry.Extremities: Extremities exhibit normal ROM. No lower extremity edema. No calf tenderness. No lowerextremity edema.Neuro: Awake. Alert. Oriented X 3. Mood/affect normal. Speech normal. Cran ial nerves II throughXII intact and normal (as tested). No cerebellar findings. No abnormal finger-nose test. No motordeficit. Moves all extremities equally. No sensory deficit. Reflexes normal. Reflex exam: left triceps2+, right biceps 2+, left biceps 2+, right brachioradialis 2+ and left brachioradialis 2+. (Normal rapid handmovment.).Psych: Cognition normal. Thought process and content normal. Insight and judgement normal.LABS, X-RAYS, AND EKGEKG: Bradycardia (58). Sinus karuna; o/w normal ECG. Discussed and reviewed wiht attending. Laboratory Tests: CBC w Diff: (WENDIE: 08/30/2021 12:58) ( MsgRcvd 08/30/2021 13:40) Final results Test Result Flag Units (Reference) CBC W/AUTOMATED DIFF COMPLETE BLOOD COUNT WBC 6.4 10/uL (4.2 - 11.0) RBC 4.89 10/uL (4.50 - 6.30) HEMOGLOBIN 15.2 g/dL (14.0 - 16.0) HEMATOCRIT 43.6 % (41.0 - 51.0) MCV 89.2 fL (80.0 - 94.0) MCH 31.1 pg (27.0 - 34.0) MCHC 34.9 g/dL (31.0 - 36.0) RDW 11.9 % (11.5 - 14.8) 3 Clinical Report - Physicians/Mid Levels [facility] Emergency Department [address] [place] [address] Phone #: ext- [phone] 08/30/2021 09:33 Patient: JOHN CORRAL Sex: M : 2000 Age: 20y PLATELETS 305 10/uL (150 - 450) MPV 9.2 fL (7.4 - 10.4) NEUT 55.9 % (37.0 - 80.0) LYMPH 31.9 % (25.0 - 40.0) MONO 6.3 % (3.0 - 8.0) EOS 4.4 % (0.0 - 7.0) BASO 0.9 % (0.0 - 2.0) %IG 0.6 H % (0.0 - 0.0) %NRBC 0.0 % (0.0 - 0.0) #NEUT 3.55 10/uL (2.00 - 6.90) #LYMPH 2.03 10/uL (0.60 - 3.40) #MONO 0.40 10/uL (0.00 - 0.90) #EOS 0.28 10/uL (0.00 - 0.70) #BASO 0.06 10/uL (0.00 - 0.20) #IG 0.04 10/uL (0.00 - 0.10) #NRBC 0.00 10/uL (0.00 - 0.00) MANUAL DIFF SEE BELOW SEGS 56 % (37 - 80) %LYMPH 36 % (25 - 40) %MONO 6 % (3 - 8) %EOS 2 % (0 - 7) RBC MORPH MORPH IS NORMALCMP: (WENDIE: 08/30/2021 12:58) ( MsgRcvd 08/30/2021 13:31) Final results Test Result Flag Units (Reference) COMPREHENSIVE METABOLIC PANEL COMPREHENSIVE METABOLIC PANEL SODIUM 139 mEq/L (134 - 153) POTASSIUM 4.3 mEq/L (3.6 - 5.0) CHLORIDE 101 mEq/L (98 - 107) CO2 30 MEQ/L (22 - 30) GLUCOSE 91 MG/DL (70 - 99) BUN 11 MG/DL (7 - 21) CREATININE 0.9 MG/DL (0.7 - 1.5) BUN/CREAT 12 (8 - 27) TOTAL PROTEIN 7.3 G/DL (6.3 - 8.2) ALBUMIN 5.0 G/DL (3.9 - 5.0) GLOBULIN 2.3 L GM/DL (2.4 - 3.2) A/G RATIO 2.2 H (0.8 - 2.0) CALCIUM 9.8 MG/DL (8.4 - 10.2) TOTAL BILI <0.7 MG/DL (0.2 - 1.3) ALKALINE PHOS 85 U/L (38 - 126) SGOT/AST 14 U/L (5 - 40) SGPT/ALT 11 U/L (7 - 56) ANION GAP 8.0 mmol/L (8.0 - 16.0) AGE 20 yrs NON-AA GFR >60 mL/min AFR AMER GFR >60 mL/min Male GFR Interprentation 20-49 yrs >60 mL/min Qnoagx71-28 yrs >56 mL/min Normal 60-69 yrs >49 mL/min Normal 70-79yrs>42 mL/min Normal 80 and above >35 mL/min Normal Female GFRInterpretation 20-39 yrs >60 mL/min Normal 40-49 yrs >58 mL/minNormal 50-59 yrs >51 mL/min Normal 60-69 yrs >45 mL/min Hfxeel91-56 yrs >39 mL/min Normal 80 and above >32 mL/min NormalLipase: (WENDIE: 08/30/2021 12:58) ( [facility] 08/30/2021 13:29) Final results Test Result Flag Units (Reference) LIPASE 39 U/L (13 - 60) 4 Clinical Report - Physicians/Mid Levels [facility] Emergency Department [address] [place] [address] Phone #: ext- [phone] 08/30/2021 09:33 Patient: JOHN CORRAL Sex: M : 2000 Age: 20y PT/PTT: (WENDIE: 08/30/2021 12:58) ( [facility] 08/30/2021 13:20) Final results Test Result Flag Units (Reference) PROTIME 13.3 SECONDS (11.0 - 15.5) INR 1.00 (0.93 - 1.23) PTT 30.4 SECONDS (24.8 - 36.7) \\BLDo\\INR INTERPRETATION\\BLDx\\ Therapeutic range for Coumadin and related oral anticoagulants. -International Normalized Ratio (INR): 2.0 - 3.0 for Venous Thrombosis, Pulmonary Embolus, Tissue heart valves, Acute [place] Atrial Fibrillation, Valvular heart disease and recurrent Systemic Embolism. -International Normalized Ratio (INR): 2.5 - 3.5 for Mechanical Prosthetic valve. Troponin-T: (WENDIE: 08/30/2021 12:58) ( MsgRcvd 08/30/2021 13:31) Final results Test Result Flag Units (Reference) TROPONIN T <0.01 NG/ML (0.00 - 0.10) TROPONIN T0.1 ng/ml Recommended as the clinical threshold value forTroponin T. TSH: (WENDIE: 08/30/2021 12:58) ( MsgRcvd 08/30/2021 13:39) Final results Test Result Flag Units (Reference) TSH 3.87 uIU/mL (0.47 - 5.01) D-Dimer: (WENDIE: 08/30/2021 12:58) ( MsgRcvd 08/30/2021 13:21) Final results Test Result Flag Units (Reference) D-DIMER QUANT 0.32 ug/mL (0.27 - 0.50) UA REFLEX TO UA CULTURE: (WENDIE: 08/30/2021 13:00) ( [facility] 08/30/2021 13:13) Final results Test Result Flag Units (Reference) UA REFLEX TO UA CULTURE URINALYSIS SOURCE R COLOR yellow (NORMAL: Yello CLARITY clear (NORMAL: Clear SPEC GRAVITY 1.025 (1.001 - 1.030 pH 6 (5 - 9) GLUCOSE NORM (NORMAL: Negat BILIRUBIN NEG (NORMAL: Negat KETONE NEG (NORMAL: Negat PROTEIN NEG (NORMAL: Negat NITRITE NEG (NORMAL: Negat BLOOD NEG (NORMAL: Negat LEUK EST NEG (NORMAL: Negat UROBILINOGEN 1 (less than 1.0 MICROSCOPIC Not Indicate.PROGRESS AND PROCEDURESCourse of Care: VSS, NAD, AOx3, interacting well and appropriately, no use of accessory muscle, able tospeak full sentences, stable, non-toxic looking. Enter room and pt lying peacefully in bed in NAD. Patient stable. Denies any new issues, concerns, or 5 Clinical Report - Physicians/Mid Levels [facility] Emergency Department [address] [place] [address] Phone #: ext- [phone] 08/30/2021 09:33 Patient: JOHN CORRAL Sex: M : 2000 Age: 20y complaints. Pt initially presented with c/o of dizziness and chest discomfort. Sts that chest has resovled, and dizziness has improved, but still slighlt present. Seen at [facility] for same s/s; had multiple COVID testing and negative. PE demos NV intact b/l UE and LE. No neuro deficits noted. Will obtian labs and imaingg for furhter eval. Pending results. 14:44 08/30/21. Nurse informs me that pt wants to leave. Enter room and pt lying peacefully in bed in NAD. Discuss with the pt the risks of this decision. Sts he is willing to accept and understands potential or signficiant negative outcome. Infomred he is more than welcome to return if needed. Pt will leave AMA.CLINICAL IMPRESSION DizzinessINSTRUCTIONS Drink plenty of fluids. (Recommend to utilize OTC Motrin and Tylenol to control inflammation and pain management. Recommend to follow the instructions on the bottle and not to exceed.). Warnings: Further evaluation is necessary. GENERAL WARNINGS: Return or contact your physician immediately if your condition worsens or changes unexpectedly, if not improving as expected, or if other problems arise. Follow-up: Return to the emergency department as needed. Follow up with your healthcare provider in about two days if not better. Call for an appointment. Understanding of the discharge instructions verbalized by patient. AMA warnings: Oriented to person, place, and time. Gives appropriate answers and rational explanation of refusal of care. Speaks coherently. No signs of psychosis, auditory hallucinations, delusional thinking, suicidal ideations or slurred speech. No tangential thinking, visual hallucinations or homicidal ideations. Abstract thinking intact. Clinical Impression: the patient has the capacity to make decisions regarding the medical care offered. Relevant issues reviewed and discussed with the patient. The suspected diagnosis, based upon the initiated medical screening exam, is Dizziness and has been discussed with the patient. Acknowledges understanding of the reasons for recommendations regarding medical treatment and further observation. The recommended medical care being refused is Wait for results and imaging and has been discussed with the patient. The risks of refusing recommended care that were disclosed are . Risks of 6 Clinical Report - Physicians/Mid Levels [facility] Emergency Department [address] [place], [place] [id number] Phone #: ext- [phone] 08/30/2021 09:33 Patient: JOHN CORRAL Sex: M : 2000 Age: 20y re fusing recommended care- Significnat negative outcome. Discharge instructions were provided to the patient. REFUSAL OF CARE STATEMENT (patient to review and sign in discharge instructions): I have read this paragraph. I understand that a doctor at this hospital wants to give me certain medical care. The doctor explained that care to me, and I understand what that care is. The doctor also explained to me what could happen to me if I leave here without having that care, and I understand what he said. I know that I am welcome to return to this hospital at any time to receive the recommended care or any other care that I may need at any time, regardless of my ability to pay for such care.(Electronically signed by Mik Hanks P.A.-C 08/31/2021 10:58) Name Value Range Interpretation Code Description Data Elizabeth rce(s) Supporting Document(s) ID Date Data Source [id number] 08/30/2021 10:11:00 [place] [address] PHONE: [phone] FAX: [phone] Name ..............: ELLIS LOPEZ Acct Number ...........................: [id number] ROOM. ............: MR Number ............................: [id number] Stay type.........: E/R Discharge Date...............:08/30/21 Admit Date .....: 08/30/21 Admit Phys .............................: LOUISA SALINAS Date of ..: 2000 Family Phys ...........................: NO PCP Phone..............: [phone] Age.................................:20 Film# ...............:[id number] Sex.................................:M Unsigned transcriptions are preliminary reports and do not represent a medical or legal document EKG [id number] COMPLETE:08/30/21 14:22 [id number] Please See Scanned Results. Name Value Range Interpretation Code Description Data Elizabeth rce(s) Supporting Document(s) ID Date Data Source [id number] 08/30/2021 01:13:00 PM EST [facility] Name Value Range Interpretation Code Description Data [facility] rce(s) Supporting Document(s) UA REFLEX TO UA CULTURE [facility] URINALYSIS SOURCE R [facility] COLOR yellow NORMAL: Yellow [facility] CLARITY clear NORMAL: Clear [facility] Specific gravity of Urine by Test strip 1.025 1.001 - 1.030 [facility] 6 5 - [facility] Gl[facility] [Mass/volume] in Urine by Test strip NORM NORMAL: Negat [facility] Bilirubin.total [Presence] in Urine by Test strip NEG NORMAL: Negative [facility] Ketones [Presence] in Urine by Test strip NEG NORMAL: Negative [facility] Protein [Mass/volume] in Urine by Test strip NEG NORMAL: Negat [facility] Nitrite [Presence] in Urine by Test strip NEG NORMAL: Negative [facility] BLOOD NEG NORMAL: Negative [facility] Leukocyte esterase [Presence] in Urine by Test strip NEG MATTIE L: Negative [facility] Urobilinogen [Mass/volume] in Urine by Test strip 1 less dereck n 1.0 mg/dL [facility] MICROSCOPIC Not Indicate [facility] ID Date Data Source [id number] 08/30/2021 01:36:00 PM EST [facility] Name Value Range Interpretation Code Description Data Elizabeth rce(s) Supporting Document(s) CBC W/AUTOMATED DIFF [facility] COMPLETE BLOOD COUNT Leukocytes [#/volume] in Blood by Automated count 6.4 10^3/uL 4.2 - 1 1.0 [facility] Erythrocytes [#/volume] in Blood by Automated count 4.89 10^6/uL 4. 50 - 6.30 [facility] Hemoglobin [Mass/volume] in Blood 15.2 g/dL 14.0 - 16.0 [facility] Hematocrit [Volume Fraction] of Blood by Automated count 43.6 % 4 1.0 - 51.0 [facility] Erythrocyte mean corpuscular volume [Entitic volume] by Auto mated count 89.2 fL 80.0 - 94.0 [facility] Erythrocyte mean corpuscular hemoglobin [Entitic mass] by Automated count 31.1 pg 27.0 - 34.0 [facility] Erythrocyte mean corpuscular hemoglobin concentration [Mass/volume] by Automated count 34.9 g/dL 31.0 - 36.0 [facility] Erythrocyte distribution width [Ratio] by Automated count 11.9 % 11.5 - 14.8 [facility] Platelets [#/volume] in Blood by Automated count 305 10^3/uL 150 - 45 0 [facility] Platelet mean volume [Entitic volume] in Blood by Automated count 9.2 fL 7.4 - 10.4 [facility] Neutrophils/100 leukocytes in Blood by Automated count 55.9 % 37. 0 - 80.0 [facility] Lymphocytes/100 leukocytes in Blood by Manual count 31.9 % 25.0 - 40.0 [facility] Monocytes/100 leukocytes in Blood by Automated count 6.3 % 3.0 - 8.0 [facility] Eosinophils/100 leukocytes in Blood by Automated count 4.4 % 0.0 - 7.0 [facility] Basophils/100 leukocytes in Blood by Automated count 0.9 % 0.0 - 2.0 [facility] %IG 0.6 % 0.0 - 0.0 H [facility] %NRBC 0.0 % 0.0 - 0.0 [facility] al Neutrophils [#/volume] in Blood by Automated count 3.55 10^3/uL 2.00 - 6.90 [facility] Lymphocytes [#/volume] in Blood by Automated count 2.03 10^3/uL 0.60 - 3.40 [facility] Monocytes [#/volume] in Blood by Automated count 0.40 10^3/uL 0.00 - 0.90 [facility] Eosinophils [#/volume] in Blood by Automated count 0.28 10^3/uL 0.00 - 0.70 [facility] Basophils [#/volume] in Blood by Automated count 0.06 10^3/uL 0.00 - 0.20 [facility] #IG 0.04 10^3/uL 0.00 - 0.10 [facility] #NRBC 0.00 10^3/uL 0.00 - 0.00 [facility] MANUAL DIFF SEE BELOW [facility] ital Segmented neutrophils/100 leukocytes in Blood by Manual count 56 % 37 - 80 [facility] %LYMPH 36 % 25 - 40 [facility] %MONO 6 % 3 - 8 [facility] al %EOS 2 % 0 - 7 [facility] al RBC MORPH MORPH IS NORMAL [facility] ID Date Data Source [id number] 08/30/2021 01:39:00 PM EST [facility] Name Value Range Interpretation Code Description Data Elizabeth rce(s) Supporting Document(s) Thyrotropin [Units/volume] in Serum or Plasma by Detec tion limit <= 0.05 mIU/L 3.87 uIU/mL 0.47 - 5.01 [facility] ID Date Data Source [id number] 08/30/2021 01:31:00 PM EST [facility] Name Value Range Interpretation Code Description Data Elizabeth e(s) Supporting Document(s) TROPONIN T <0.01 NG/ML 0.00 - 0.10 [facility] ospital TROPONIN T0.1 ng/ml Recommended as the c linical threshold value forTroponin T. ID Date Data Source [id number] 08/30/2021 01:31:00 PM EST [facility] Name Value Range Interpretation Code Description Data Elizabeth [facility](s) Supporting Document(s) COMPREHENSIVE METABOLIC PANEL [facility] COMPREHENSIVE METABOLIC PANEL Sodium [Moles/volume] in Serum or Plasma 139 mEq/L 134 - 153 [facility] Potassium [Moles/volume] in Serum or Plasma 4.3 mEq/L 3.6 - 5.0 [facility] Chloride [Moles/volume] in Serum or Plasma 101 mEq/L 98 - 107 [facility] Carbon dioxide, total [Moles/volume] in Serum or Plasma 30 MEQ/L 22 - 30 [facility] Glucose [Mass/volume] in Serum or Plasma 91 MG/DL 70 - 99 [facility] BUN 11 MG/DL 7 - 21 [facility] al Creatinine [Mass/volume] in Serum or Plasma 0.9 MG/DL 0.7 - 1.5 [facility] BUN/CREAT 12 8 - 27 [facility] al Protein [Mass/volume] in Serum or Plasma 7.3 G/DL 6.3 - 8.2 [facility] Albumin [Mass/volume] in Serum or Plasma 5.0 G/DL 3.9 - 5.0 [facility] Globulin [Mass/volume] in Serum by calculation 2.3 GM/DL 2.4 - 3.2 L [facility] A/G RATIO 2.2 0.8 - 2.0 H [facility] al Calcium [Mass/volume] in Serum or Plasma 9.8 MG/DL 8.4 - 10.2 [facility] Bilirubin.total [Mass/volume] in Serum or Plasma <0.7 MG/DL 0.2 - 1.3 [facility] Alkaline phosphatase [Enzymatic activity/volume] in Serum or Plasma 85 U/L 38 - 126 [facility] Aspartate aminotransferase [Enzymatic activity/volume] in Serum or Plasma 14 U/L 5 - 40 [facility] Alanine aminotransferase [Enzymatic activity/volume] in Seru m or Plasma 11 U/L 7 - 56 [facility] Anion gap 3 in Serum or Plasma 8.0 mmol/L 8.0 - 16.0 [facility] AGE 20 yrs [facility] NON-AA GFR >60 mL/min [facility] ital AFR AMER GFR >60 mL/min [facility] Male GFR In terprentation 20-49 [...] >32 mL/min Normal ID Date Data Source [id number] 08/30/2021 01:29:00 PM [facility] Name Value Range Interpretation Code Description Data Elizabeth rce(s) Supporting Document(s) Lipase [Enzymatic activity/volume] in Serum or Plasma 39 U/L 13 - 60 [facility] ID Date Data Source [id number] 08/30/2021 01:21:00 PM [facility] Name Value Range Interpretation Code Description Data Elizabeth rce(s) Supporting Document(s) Fibrin D-dimer FEU [Mass/volume] in Platelet poor plasma 0.32 ug /mL 0.27 - 0.50 [facility] ID Date Data Source [id number] 08/30/2021 01:20:00 PM [facility] Name Value Range Interpretation Code Description Data Elizabeth rce(s) Supporting Document(s) Prothrombin time (PT) 13.3 SECONDS 11.0 - 15.5 [facility] INR in Platelet poor plasma by Coagulation assay 1.00 0.93 - 1. 23 [facility] aPTT in Blood by Coagulation assay 30.4 SECONDS 24.8 - 36.7 [facility] \\BLDo\\INR INTERPRETATION\\BLDx\\ Therapeutic range for Coumadin and related oral anticoagulants. - International Normalized Ratio (INR): 2.0 - 3.0 for Venous Thrombosis, Pulmonary Embolus, Tissue heart valves, Acute [place] Atrial Fibrillation, Valvular heart disease and recurrent Systemic Embolism. - International Normalized Ratio (INR): 2.5 - 3.5 for Mechanical Prosthetic valve. ID Date Data Source [id number] 08/26/2021 11:47:00 AM EDT [facility] Name Value Range Interpretation Code Description Data Elizabeth rce(s) Supporting Document(s) SARS coronavirus 2 RNA Not Detected [facility] This lab was ordered by [facility] and reported by [facility]. ID Date Data Source [id number] 08/24/2021 12:00:00 AM EDT [facility] Name Value Range Interpretation Code Description Data Elizabeth rce(s) Supporting Document(s) SARS-COV-2 Negative [facility] This lab was ordered by [email or web address] and re ported by [email or web address]. Procedure Social History No Information
--- OUTSIDE RECORDS SUMMARY | 2021-09-15 12:07 | CCD ---
Author Author [facility] Organization [facility] Address Unknown Phone Unavailable Care Team Providers Care Chemist Intern Name Role Phone NO, PCP Unavailable Unavailable [...] is protected by Article 27-F of the [facility] Public Health law. If you continue you may have access to information: Regarding HIV / AIDS; Provided by facilities licensed or operated by the [facility] Office of Mental Health; or Provided by the [facility] Office for People With Developmental Disabilities. If such information is present, then the following [facility] mandated warning applies: This information has [...] law may result in a fine or chcf sentence or both. A general authorization for the release of medical or other information is NOT sufficient authorization for further disc losure. Encounters Encounter Providers Location Date Indications Data Source(s ) Emergency Attender: ALLAN Haydenant: PCP NO 08/30/2021 09:40:00 AM EST - 08/30/2021 03:00:00 PM [facility] Patient discharged. Immunizations Vaccine Date Status Description Data Source(s) COVID-19 VACCINE Moderna 03/09/2021 12:00:00 AM EDT completed [facility] Vaccine Series Complete: YESThis Data wa s Submitted to [facility] Via [employer]. COVID-19 VACCINE Moderna 02/09/2021 12:00:00 AM EDT completed [facility] Vaccine Series Complete: NOThis Data was Submitted to [facility] Via [employer]. Medications No Information Insurance Providers Payer name Policy type / Coverage type Policy ID Covered green party ID Covered green party's relationship to mckeon Policy Mckeon Plan Information [facility] [id number] SP [id number] [facility] - O/P [id number] 18 [id number] [facility] O [id number] S [id number] Problems, Conditions, and Diagnoses Code Display Name Description Problem Type Effective Dates Data Source(s) Z5320 Procedure and treatment not carried out because of patient's decision for unspecified reasons Procedure and treatment not carried out because of patient's decision for unspecified reasons Diagnosis 08/30/2021 09:40:00 AM [facility] R001 Bradycardia, unspecified Bradycardia, unspecified Diag nosis 08/30/2021 09:40:00 AM [facility] R42 Dizziness and giddiness Dizziness and giddiness Diagno sis 08/30/2021 09:40:00 AM [facility] Surgeries/Procedures No Information Results ID Date Data Source [id number] 08/30/2021 09:40:00 AM [facility] 1 OrderSheet [facility] Emergency Department [address] [place] [address] Phone #: ext- [phone] 08/30/2021 09:33 Patient: [...] P.A.-C; Reason for Study: dizziness 2 OrderSheet [facility] Emergency Department [address] [place] [address] Phone #: ext- [phone] 08/30/2021 09:33 Patient: JOHN CORRAL Sex: M : 2000 Age: 20yChest 2 View STAT 13:56 08/30/2021 14:29 Ruel,(Oxygen?(No)) Mik Lin RN P.A.-C; Reason for Study: dizziness; neg d- dimerMEDICATION/IV/DRIP/FLUID ORDERSOrder Description Priority Entered Acknowledged InitialedIV NS : Bolus 500 12:49 08/30/2021 13:46 Ruel,mL, then 100 mL/hr Mik Lin RN P.A.-C;Tylenol 1 g PO X1 13:56 08/30/2021 Cancelled: Patient Left 15:10 Alfred,dose: 1000 mg Mik Nair RJeromeNJerome(NOW x1) P.A.- C;Zofran IVP 4 mg 13:56 08/30/2021 Cancelled: Patient Left 15:10 Alrfed, Mik Nair R.N. P.A.-C;GENERAL ORDERSOrder Description Priority Entered Acknowledged InitialedEKG 12:26 08/30/2021 12:26 L Ruel Keating Lisa RN; Delia MERCADO Per protocol; Mik Grafood Pressure 12:49 08/30/2021 13:05 Ruel,Monitor Mik Lin RN P.A.-C;Integrated Logistics Programs Director 12:49 08/30/2021 13:05 Ruel,(continuous) Mik Lin RN P.A.-C;NPO 12:49 08/30/2021 13:05 Mik Lipscomb RN P.A.-C;Obtain Old EKG 12:49 08/30/2021 13:05 Mik Lipscomb RN P.A.-C;Obtain Old Records 12:49 08/30/2021 13:06 Mik Lipscomb RN P.A.-C;Saline Lock 12:49 08/30/2021 13:46 Mik Lipscomb RN;Vitals 12:49 08/30/2021 13:00 Ruel, 3 OrderSheet [facility] Emergency Department [address] [place] [address] Phone #: [phone]- [phone] 08/30/2021 09:33 Patient: JOHN CORRAL Sex: M : 2000 Age: 20y Mik Lin RN, P.A.-C;[Electronically signed by Joanie Simon R.N. (15:13 08/30/2021)][Electronically signed by Mik Hanks P.A.-C (10:58 08/31/2021)][Electronically locked by Joanie Simon R.N. (15:13 08/30/2021)] Name Value Range Interpretation Code Description Data Elizabeth rce(s) Supporting Document(s) ID Date Data Source [id number] 08/30/2021 09:40:00 AM EST [facility] 1 Medication Reconciliation Report [facility] Emergency Department [address] [place] [address] Phone #: ext- [phone] 08/30/2021 09:33 Patient: [...] rce(s) Supporting Document(s) ID Date Data Source [id number] 08/30/2021 09:40:00 AM [place] [address] Medication Administration Record [facility] Emergency Department [address] [place] [address] Phone #: [phone]- [phone] 08/30/2021 09:33 Patient: JOHN CORRAL Sex: M : 2000 Age: 20yWeight: 58.9 kgHeight/Length: 64 inBMI: 22.3ALLERGIES: No Known Drug Allergy Date/Time Medication Administered Medication OrderedStart IV NS IV NS : Bolus 500 mL, then 02421:46 08/30/2021 Dose: IV Fluids mL/hrDelia Lipscomb RN Rate: 100 mL/hr over 5 hour(s)---- Bolus: 500 mL over 30 minute(s)Stop Dispensed: 1000 mL bag15:13 08/30/2021 Site: #1 left Joanie Prieto R.N. Name Value Range Interpretation Code Description Data Elizabeth rce(s) Supporting Document(s) ID Date Data Source [id number] 08/30/2021 09:40:00 AM [facility] 1 General Instructions [facility] Emergency Department [address] [place] [address] Phone #: ext- [phone] 08/30/2021 09:33 Patient: [...] I understand that a doctor at this [facility] wants to give me certain medicalcare. [...] pay for such care. 2 General Instructions [facility] Emergency Department [address] [place] [address] Phone #: ext- [phone] 08/30/2021 09:33 Patient: JOHN CORRAL Sex: M : 2000 Age: 20y ADDITIONAL INFORMATIONDizziness (Uncertain Cause)Dizziness is a common symptom. It may be described as lightheadedness, spinning, or feeling likeyou are going to faint. Dizziness can have many causes.Tell the healthcare provider about: All medicines you take, including prescription, [id number], herbs, and supplements Any other symptoms you [...] symptoms or new symptoms 3 General Instructions [facility] Emergency Department [address] [place] [address] Phone #: ext- [phone] 08/30/2021 09:33 Patient: [...] out or seizure Trouble walking or speaking [employer]. [address] [place] [address]. All rights reserved. This information is not intended as asubstitute for professional medical care. Always follow your healthcare professional's instructions. You have been given the following additional information: Dizziness, Uncertain Cause(Electronically signed by Mik Hanks P.A.-C 08/31/2021 10:58) Name Value Range Interpretation Code Description Data Elizabeth rce(s) Supporting Document(s) ID Date Data Source [id number] 08/30/2021 09:40:00 AM EST [facility] 1 Clinical Report - Nurses [facility] Emergency Department [address] [place] [address] Phone #: [phone]- [phone] 08/30/2021 09:33 Patient: JOHN CORRAL Sex: M : 2000 Age: 20yTRIAGEArrived by private vehicle. Historian: patient.Acuity: LEVEL 3.Chief Complaint: HEADACHE, DIZZINESS, SORE THROAT, CHEST PAIN, COUGH and DIARRHEA.Alert. No acute distress.Onset. (2 weeks ago). ( Pt reports having a CABALLERO, sore throat, diarrhea, and cough x 2 weeks. [facility] and had a covid test done which came back negative. [facility]. This morning while running he began havingchest pain and dizziness (chest pain not present now but still feels dizzy).). 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 Seen within the last 30 days [...] known surgeries. 2 Clinical Report - Nurses [facility] E mergency Department [address] [place] [address] Phone #: ext- [phone] 08/30/2021 09:33 Patient: [...] Patient ready for evaluation. --12:26 08/30/21 Delia Lipscomb, JESS 3 Clinical Report - Nurses [facility] Emergency Department [address] [place] [address] Phone #: ext- [phone] 08/30/2021 09:33 Patient: [...] rce(s) Supporting Document(s) ID Date Data Source [id number] 08/30/2021 09:40:00 AM [facility] 1 Clinical Report - Physicians/Mid Levels [facility] Emergency Department [address] [place] [address] Phone #: ext- [phone] 08/30/2021 09:33 Patient: [...] x 2 weeks. He was seen at [facility] last week and had a covid test done which came back negative. HE had another covid test done at the [facility] on which was also negative. This morning [...] NOTES 2 Clinical Report - Physicians/Mid Levels [facility] Emergency Department [address] [place] [address] Phone #: [phone] 08/30/2021 09:33 Patient: JOHN CORRAL Sex: M [...] 14.8) 3 Clinical Report - Physicians/Mid Levels [facility] Emergency Department [address] [place] [address] Phone #: ext- [phone] 08/30/2021 09:33 Patient: [...] Male GFR Interprentation 20-49 yrs >60 mL/min [id number] yrs >56 mL/min Normal 60-69 yrs >49 mL/min Normal 70-79yrs>42 mL/min Normal 80 and above >35 mL/min Normal Female GFRInterpretation 20-39 yrs >60 mL/min Normal 40-49 yrs >58 mL/minNormal 50-59 yrs >51 mL/min Normal 60-69 yrs >45 mL/min Xkdjvg83-61 yrs >39 mL/min Normal 80 and above >32 mL/min NormalLipase: (WENDIE: 08/30/2021 12:58) ( [facility] 08/30/[facility] 13:29) Final results Test Result Flag Units (Reference) LIPASE 39 U/L (13 - 60) 4 Clinical Report - Physicians/Mid Levels [facility] Emergency Department [address] [place] [address] Phone #: ext- [phone] 08/30/2021 09:33 Patient: JOHN CORRAL Sex: M : 2000 Age: 20y PT/PTT: (WENDIE: 08/30/2021 12:58) ( [facility] 08/30/2021 13:20) Final results Test Result Flag Units (Reference) PROTIME 13.3 SECONDS (11.0 - 15.5) INR 1.00 (0.93 - 1.23) PTT 30.4 SECONDS (24.8 - 36.7) \\BLDo\\INR INTERPRETATION\\BLDx\\ Therapeutic range for Coumadin and related oral anticoagulants. -International Normalized Ratio (INR): 2.0 - 3.0 for Venous Thrombosis, Pulmonary Embolus, Tissue heart valves, Acute PA Atrial Fibrillation, Valvular heart disease and recurrent [...] TO UA CULTURE: (WENDIE: 08/30/2021 13:00) ( [facility] 08/30/2021 13:13) Final results Test Result Flag [...] or 5 Clinical Report - Physicians/Mid Levels [facility] Emergency Department [address] [place] [address] Phone #: ext- [phone] 08/30/2021 09:33 Patient: JOHN CORRAL Sex: M : 2000 Age: 20y complaints. Pt initially presented with c/o of dizziness and chest discomfort. Sts that chest has resovled, and dizziness has improved, but still slighlt present. Seen at [facility] for same s/s; had multiple [...] of 6 Clinical Report - Physicians/Mid Levels [facility] Emergency Department [address] [place] [address] Phone #: ext- [phone] 08/30/2021 09:33 Patient: JOHN CORRAL Sex: M [...] I am welcome to return to this [facility] at any time to receive the recommended care or any other care that I may need at any time, regardless of my ability to pay for such care.(Electronically signed by Mik Hanks P.A.-C 08/31/2021 10:58) Name Value Range Interpretation Code Description Data Elizabeth rce(s) Supporting Document(s) ID Date Data Source [id number] 08/30/2021 10:11:00 [place] [address] PHONE: [phone] FAX: [phone] Name ..............: ELLIS LOPEZ Acct Number ...........................: [id number] ROOM. ............: MR Number ............................: [id number] Stay type.........: E/R Discharge Date...............:08/30/21 Admit Date .....: 08/30/21 Admit Phys .............................: LOUISA SALINAS Date of ..: 2000 Family Phys ...........................: NO PCP Phone..............: [phone] Age.................................:20 Film# ...............:[id number] Sex.................................:M Unsigned transcriptions are preliminary reports and do not represent a medical or legal document EKG [id number] COMPLETE:08/30/21 14:22 [id number] Please See Scanned Results. Name Value Range Interpretation Code Description Data Elizabeth rce(s) Supporting Document(s) ID Date Data Source [id number] 08/30/2021 01:13:00 PM EST [facility] Name Value Range Interpretation Code Description Data [facility] rce(s) Supporting Document(s) UA REFLEX TO UA CULTURE [facility] URINALYSIS SOURCE R [facility] COLOR yellow NORMAL: Yellow [facility] CLARITY clear NORMAL: Clear [facility] Specific gravity of Urine by Test strip 1.025 1.001 - 1.030 [facility] 6 5 - 9 [facility] Glucose [Mass/volume] in Urine by Test strip NORM NORMAL: Negat [facility] Bilirubin.total [Presence] in Urine by Test strip NEG NORMAL: Negative [facility] Ketones [Presence] in Urine by Test strip NEG NORMAL: Negative [facility] Protein [Mass/volume] in Urine by Test strip NEG NORMAL: Negat [facility] Nitrite [Presence] in Urine by Test strip NEG NORMAL: Negative [facility] BLOOD NEG NORMAL: Negative [facility] Leukocyte esterase [Presence] in Urine by Test strip NEG MATTIE L: Negative [facility] Urobilinogen [Mass/volume] in Urine by Test strip 1 less dereck n 1.0 mg/dL [facility] MICROSCOPIC Not Indicate [facility] ID Date Data Source [id number] 08/30/2021 01:36:00 PM EST [facility] Name Value Range Interpretation Code Description Data Elizabeth rce(s) Supporting Document(s) CBC W/AUTOMATED DIFF [facility] COMPLETE BLOOD COUNT Leukocytes [#/volume] in Blood by Automated count 6.4 10^3/uL 4.2 - 1 1.0 [facility] Erythrocytes [#/volume] in Blood by Automated count 4.89 10^6/uL 4. 50 - 6.30 [facility] Hemoglobin [Mass/volume] in Blood 15.2 g/dL 14.0 - 16.0 [facility] Hematocrit [Volume Fraction] of Blood by Automated count 43.6 % 4 1.0 - 51.0 [facility] Erythrocyte mean corpuscular volume [Entitic volume] by Auto mated count 89.2 fL 80.0 - 94.0 [facility] Erythrocyte mean corpuscular hemoglobin [Entitic mass] by Automated count 31.1 pg 27.0 - 34.0 [facility] Erythrocyte mean corpuscular hemoglobin concentration [Mass/volume] by Automated count 34.9 g/dL 31.0 - 36.0 [facility] Erythrocyte distribution width [Ratio] by Automated count 11.9 % 11.5 - 14.8 [facility] Platelets [#/volume] in Blood by Automated count 305 10^3/uL 150 - 45 0 [facility] Platelet mean volume [Entitic volume] in Blood by Automated count 9.2 fL 7.4 - 10.4 [facility] Neutrophils/100 leukocytes in Blood by Automated count 55.9 % 37. 0 - 80.0 [facility] Lymphocytes/100 leukocytes in Blood by Manual count 31.9 % 25.0 - 40.0 [facility] Monocytes/100 leukocytes in Blood by Automated count 6.3 % 3.0 - 8.0 [facility] Eosinophils/100 leukocytes in Blood by Automated count 4.4 % 0.0 - 7.0 [facility] Basophils/100 leukocytes in Blood by Automated count 0.9 % 0.0 - 2.0 [facility] %IG 0.6 % 0.0 - 0.0 [facility] %NRBC 0.0 % 0.0 - 0.0 [facility] al Neutrophils [#/volume] in Blood by Automated count 3.55 10^3/uL 2.00 - 6.90 [facility] Lymphocytes [#/volume] in Blood by Automated count 2.03 10^3/uL 0.60 - 3.40 [facility] Monocytes [#/volume] in Blood by Automated count 0.40 10^3/uL 0.00 - 0.90 [facility] Eosinophils [#/volume] in Blood by Automated count 0.28 10^3/uL 0.00 - 0.70 [facility] Basophils [#/volume] in Blood by Automated count 0.06 10^3/uL 0.00 - 0.20 [facility] #IG 0.04 10^3/uL 0.00 - 0.10 [facility] #NRBC 0.00 10^3/uL 0.00 - 0.00 [facility] MANUAL DIFF SEE BELOW [facility] ital Segmented neutrophils/100 leukocytes in Blood by Manual count 56 % 37 - 80 [facility] %LYMPH 36 % 25 - 40 [facility] al %MONO 6 % 3 - 8 [facility] al %EOS 2 % 0 - 7 [facility] al RBC MORPH MORPH IS NORMAL [facility] ID Date Data Source [id number] 08/30/2021 01:39:00 PM EST [facility] Name Value Range Interpretation Code Description Data Elizabeth rce(s) Supporting Document(s) Thyrotropin [Units/volume] in Serum or Plasma by Detec tion limit <= 0.05 mIU/L 3.87 uIU/mL 0.47 - 5.01 [facility] ID Date Data Source [id number] 08/30/2021 01:31:00 PM EST [facility] Name Value Range Interpretation Code Description Data Elizabeth rce(s) Supporting Document(s) TROPONIN T <0.01 NG/ML 0.00 - 0.10 [facility] ospital TROPONIN T0.1 ng/ml Recommended as the c linical threshold value forTroponin T. ID Date Data Source [id number] 08/30/2021 01:31:00 PM EST [facility] Name Value Range Interpretation Code Description Data [facility](s) Supporting Document(s) COMPREHENSIVE METABOLIC PANEL [facility] COMPREHENSIVE METABOLIC PANEL Sodium [Moles/volume] in Serum or Plasma 139 mEq/L 134 - 153 [facility] Potassium [Moles/volume] in Serum or Plasma 4.3 mEq/L 3.6 - 5.0 [facility] Chloride [Moles/volume] in Serum or Plasma 101 mEq/L 98 - 107 [facility] Carbon dioxide, total [Moles/volume] in Serum or Plasma 30 MEQ/L 22 - 30 [facility] Glucose [Mass/volume] in Serum or Plasma 91 MG/DL 70 - 99 [facility] BUN 11 MG/DL 7 - 21 [facility] al Creatinine [Mass/volume] in Serum or Plasma 0.9 MG/DL 0.7 - 1.5 [facility] BUN/CREAT 12 8 - 27 [facility] al Protein [Mass/volume] in Serum or Plasma 7.3 G/DL 6.3 - 8.2 [facility] Albumin [Mass/volume] in Serum or Plasma 5.0 G/DL 3.9 - 5.0 [facility] Globulin [Mass/volume] in Serum by calculation 2.3 GM/DL 2.4 - 3.2 L [facility] A/G RATIO 2.2 0.8 - 2.0 [facility] Calcium [Mass/volume] in Serum or Plasma 9.8 MG/DL 8.4 - 10.2 [facility] Bilirubin.total [Mass/volume] in Serum or Plasma <0.7 MG/DL 0.2 - 1.3 [facility] Alkaline phosphatase [Enzymatic activity/volume] in Serum or Plasma 85 U/L 38 - 126 [facility] Aspartate aminotransferase [Enzymatic activity/volume] in Serum or Plasma 14 U/L 5 - 40 [facility] Alanine aminotransferase [Enzymatic activity/volume] in Seru m or Plasma 11 U/L 7 - 56 [facility] Anion gap 3 in Serum or Plasma 8.0 mmol/L 8.0 - 16.0 [facility] AGE 20 yrs [facility] NON-AA GFR >60 mL/min [facility] AFR AMER GFR >60 mL/min [facility] Male GFR In terprentation [...] >32 mL/min Normal ID Date Data Source [id number] 08/30/2021 01:29:00 PM [facility] Name Value Range Interpretation Code Description Data Elizabeth rce(s) Supporting Document(s) Lipase [Enzymatic activity/volume] in Serum or Plasma 39 U/L 13 - 60 [facility] ID Date Data Source [id number] 08/30/2021 01:21:00 PM [facility] Name Value Range Interpretation Code Description Data Elizabeth rce(s) Supporting Document(s) Fibrin D-dimer FEU [Mass/volume] in Platelet poor plasma 0.32 ug /mL 0.27 - 0.50 [facility] ID Date Data Source [id number] 08/30/2021 01:20:00 PM [facility] Name Value Range Interpretation Code Description Data Elizabeth rce(s) Supporting Document(s) Prothrombin time (PT) 13.3 SECONDS 11.0 - 15.5 [facility] INR in Platelet poor plasma by Coagulation assay 1.00 0.93 - 1. 23 [facility] aPTT in Blood by Coagulation assay 30.4 SECONDS 24.8 - 36.7 [facility] \\BLDo\\INR INTERPRETATION\\BLDx\\ Therapeutic range for Coumadin and related oral anticoagulants. - International Normalized Ratio (INR): 2.0 - 3.0 for Venous Thrombosis, Pulmonary Embolus, Tissue heart valves, Acute PA Atrial Fibrillation, Valvular heart disease and recurrent Systemic Embolism. - International Normalized Ratio (INR): 2.5 - 3.5 for Mechanical Prosthetic valve. ID Date Data Source [id number] 08/26/2021 11:47:00 AM EDT [facility] Name Value Range Interpretation Code Description Data Elizabeth rce(s) Supporting Document(s) SARS coronavirus 2 RNA Not Detected [facility] This lab was ordered by [facility] and reported by [facility]. ID Date Data Source [id number] 08/24/2021 12:00:00 AM EDT [facility] Name Value Range Interpretation Code Description Data Elizabeth rce(s) Supporting Document(s) SARS-COV-2 Negative [facility] This lab was ordered by [facility] and re ported by [facility]. Procedure Social History No Information
--- NOTE | 2021-09-15 12:22 | REP ---
INDICATION: trauma; pain to left clavicle COMPARISON: None. TECHNIQUE: Two views of the left clavicle FINDINGS: No acute fracture or dislocation. Sternoclavicular and acromioclavicular joints are normal. Surrounding soft tissues are unremarkable. IMPRESSION: 1. No fracture or dislocation. <Electronically signed by Ganga Harley > 09/15/21 [id number]
[2021-09-15] MEDS ORDERED: ACETAMINOPHEN 325 MG TAB PO ONE (12:50)
--- NOTE | 2021-09-15 13:22 | REP ---
INDICATION: pain, decreased range of motion fell onto L shoulder. COMPARISON: None. TECHNIQUE: Three views of the left shoulder were performed. FINDINGS: The acromioclavicular and glenohumeral relationships are within normal limits. There is no acute fracture or destructive osseous lesion. IMPRESSION: Within normal limits <Electronically signed by Ranjith Ruiz > 09/15/21 [id number]
[2021-09-15 14:11] VITALS: BP 108/56
== END 2021-09-15 14:12 | disposition home or self-care (01) ==
LOC: M ED 10:59
DX: S43.92XA Sprain of unspecified parts of left shoulder girdle, initial encounter (principal); Y92.9 Unspecified place or not applicable; Y93.61 Activity, american tackle football; Y99.1 Military activity